=== PATIENT | female | born 1965 | race Caucasian/White ===

== ENCOUNTER → 2017-03-11 | Outpatient (CLI) | payer BC, OTHER ==
[~2017-03-11] MED LIST: ASCO-340 PO; ASPI81TA2 PO; CALC-1152 PO; CHOL100044 PO; DIAZ5TAB4 PO; DOCU-25 PO; ESCI20TA PO; ESTR1PAT27 TD; GABA600T2 PO; MAGN100T PO; METH500T PO; NARA2.5T2 PO; OXYC10TA49 PO; TEMA30CA PO
== END | disposition home or self-care (01) ==
LOC: RAD 10:12
PROVIDERS: ATTEND Surgery
DX: M25.541 Pain in joints of right hand (principal)
CPT/HCPCS: 73130-TC

== ENCOUNTER 2017-03-17 12:16 | Outpatient (CLI) | payer BC, OTHER ==
[2017-03-17 14:15] LABS: INR 0.94 (0.87-1.13)
[2017-03-17 14:33] LABS: BASOPHILS % (AUTO) 0.8 % (0.0-2.0); EOSINOPHILS # (AUTO) 0.1 /CMM (0.0-0.7); EOSINOPHILS % (AUTO) 1.7 % (0.0-6.0); HEMATOCRIT 43 % (33-45); HEMOGLOBIN 14.3 g/dL (11.5-14.8); LYMPHOCYTES # (AUTO) 2.1 /CMM (0.8-4.8); LYMPHOCYTES % (AUTO) 36.3 % (20.0-44.0); MEAN CORPUSCULAR HEMOGLOBIN 29 PG (26.0-33.0); MEAN CORPUSCULAR HGB CONC 33 g/dl (31.0-36.0); MEAN CORPUSCULAR VOLUME 86 fL (82-100); MONOCYTES # (AUTO) 0.3 /CMM (0.1-1.30); MONOCYTES % (AUTO) 4.9 % (2.0-12.0); NEUTROPHILS # (AUTO) 3.3 /CMM (1.8-8.9); NEUTROPHILS % (AUTO) 56.3 % (43.0-81.0); PLATELET COUNT (AUTO) 335 /CMM (150-450); RDW COEFFICIENT OF VARIATION 13.1 (11.5-15.0); RED BLOOD CELL COUNT(AUTO) 5.03 MIL/uL (4.0-5.2); WHITE BLOOD COUNT (AUTO) 5.9 K/uL (4.3-11.0)
[2017-03-18] MEDS ORDERED: FENTANYL PF 100MCG/2ML AMPUL ONE (07:39)
== END 2017-03-17 23:59 | disposition home or self-care (01) ==
LOC: LAB 12:16
PROVIDERS: ATTEND Physical Medicine & Rehabilitation Pain Medicine
DX: R06.00 Dyspnea, unspecified (principal); M41.84 Other forms of scoliosis, thoracic region; M47.814 Spondylosis without myelopathy or radiculopathy, thoracic region
CPT/HCPCS: 36415; 71020-TC; 85025-TC; 85610-TC; 85730-TC; J3010

== ENCOUNTER 2017-03-18 06:26 | Day surgery (SDC) | payer BC, OTHER ==
[~2017-03-18] VITALS: Ht 162.6 cm; Wt 77.1 kg
[2017-03-18] MEDS ORDERED: TRIAMCINOLONE ACETONIDE SUSP 40 MG/ML 1 ML ONE ×2 (07:30→08:15)
[2017-03-18] MEDS ORDERED: IOHEXOL 50 ML IV ONE (07:30)
[2017-03-18] MEDS ORDERED: BUPIVACAINE 0.5 % PF 150 MG/30 ML VIAL ONE (08:15)
[2017-03-18] MEDS ORDERED: BUPIVACAINE 0.25% 75 MG/30 ML VIAL ONE (08:15)
[2017-03-18] MEDS ORDERED: FENTANYL PF 100MCG/2ML AMPUL ONE ×2 (08:46→09:12)
[2017-03-18] MEDS ORDERED: IV LR 1000 ML 1,000 ML ONE (08:59)
[2017-03-18] MEDS ORDERED: NEEDLELESS EST SET LARGE BORE 1 EA INFUS.SET MC ONE (09:00)
[2017-03-18] MEDS ORDERED: IV SET PRIMARY 1 EA INFUS.SET MC ONE (09:00)
[2017-03-18] MEDS ORDERED: HYDROMORPHONE 1 MG/1 ML DISP.SYRIN ONE ×3 (09:36→10:24)
== END 2017-03-18 11:20 | disposition home or self-care (01) ==
LOC: DS 06:26
PROVIDERS: ATTEND Physical Medicine & Rehabilitation Pain Medicine
DX: M51.16 Intervertebral disc disorders with radiculopathy, lumbar region (principal); F41.9 Anxiety disorder, unspecified
CPT/HCPCS: 64483; 72020; A6402; J1170 ×3; J2405; J2704; J3010 ×2; J3490 ×2; J7120; Q9967

== ENCOUNTER 2017-04-07 07:59 | Outpatient (CLI) | payer BC, OTHER ==
[2017-04-07 09:01] LABS: BASOPHILS % (AUTO) 0.8 % (0.0-2.0); EOSINOPHILS # (AUTO) 0.1 /CMM (0.0-0.7); EOSINOPHILS % (AUTO) 1.3 % (0.0-6.0); HEMATOCRIT 41 % (33-45); LYMPHOCYTES # (AUTO) 2.1 /CMM (0.8-4.8); LYMPHOCYTES % (AUTO) 34.4 % (20.0-44.0); MEAN CORPUSCULAR HEMOGLOBIN 30 PG (26.0-33.0); MEAN CORPUSCULAR HGB CONC 34 g/dl (31.0-36.0); MEAN CORPUSCULAR VOLUME 88 fL (82-100); MONOCYTES # (AUTO) 0.4 /CMM (0.1-1.30); MONOCYTES % (AUTO) 6.1 % (2.0-12.0); NEUTROPHILS # (AUTO) 3.4 /CMM (1.8-8.9); NEUTROPHILS % (AUTO) 57.4 % (43.0-81.0); PLATELET COUNT (AUTO) 307 /CMM (150-450); RED BLOOD CELL COUNT(AUTO) 4.71 MIL/uL (4.0-5.2)
[2017-04-07 09:12] LABS: APPEARANCE,URINE CLEAR (CLEAR); BILIRUBIN,URINE NEGATIVE (NEGATIVE); BLOOD, URINE NEGATIVE Ery/uL (NEGATIVE); COLOR,URINE YELLOW (YELLOW); KETONES,URINE NEGATIVE (NEGATIVE); LEUKOCYTE ESTERASE ,URINE NEGATIVE (NEGATIVE); NITRITE, URINE NEGATIVE (NEGATIVE); PH,URINE 6.5 (5.0-8.0); PROTEIN,URINE NEGATIVE (NEGATIVE); UGLUCOSE NEGATIVE (NEGATIVE); UROBILINOGEN,URINE 0.2 EU/dL (0.2)
[2017-04-07 09:13] LABS: ALBUMIN 3.5 g/dL (3.4-5.0); BILIRUBIN,TOTAL 0.6 mg/dL (0.2-1.0); CALCIUM, SERUM 8.5 mg/dL (8.5-10.1); CREATININE 0.7 mg/dL (0.6-1.3); POTASSIUM 5.1 mmol/L (3.5-5.1); TOTAL PROTEIN, SERUM 6.7 g/dL (6.4-8.2)
[2017-04-07 09:26] LABS: THYROID STIMULATING HORMONE 0.721 uIU/mL (0.358-3.74); URIC ACID 4.6 mg/dL (2.6-7.2)
[2017-04-07 09:39] LABS: C-REACTIVE PROTEIN 1.5 mg/dL (0.0-0.9)
[2017-04-08 18:09] LABS: *ANA ANTI-CENTROMERE B AB <0.2 AI (0.0-0.9); *ANA ANTI-DNA(DS) AB, QN <1 IU/mL (0-9); *ANA ANTI-JO-1 <0.2 AI (0.0-0.9); *ANA ANTICHROMATIN ANTIBODY <0.2 AI (0.0-0.9); *ANA RNP ANTIBODIES <0.2 AI (0.0-0.9); *ANA SJOGREN'S ANTI-SS-A <0.2 AI (0.0-0.9); *ANA SJOGREN'S ANTI-SS-B <0.2 AI (0.0-0.9); *ANAANTI-SCLERODERMA-70 AB <0.2 AI (0.0-0.9); *ANASMITH AB <0.2 AI (0.0-0.9)
[2017-04-09 19:12] LABS: CCP IgG/IgA AB 5 units (0-19)
== END 2017-04-07 23:59 | disposition home or self-care (01) ==
LOC: LAB 07:59
PROVIDERS: ATTEND Legal Medicine
DX: E03.9 Hypothyroidism, unspecified (principal); I25.10 Atherosclerotic heart disease of native coronary artery without angina pectoris; I12.9 Hypertensive chronic kidney disease with stage 1 through stage 4 chronic kidney disease, or unspecified chronic kidney disease; D63.1 Anemia in chronic kidney disease; N18.9 Chronic kidney disease, unspecified; E55.9 Vitamin D deficiency, unspecified; E78.5 Hyperlipidemia, unspecified
CPT/HCPCS: 36415; 80053-TC; 80061-TC; 81000-TC; 82306; 82728-TC; 82746; 83540-TC; 84439-TC; 84443-TC; 84550-TC; 85025-TC; 85652-TC; 86140-TC; 86200; 86225; 86235; 86431-TC

== ENCOUNTER 2017-04-16 06:22 | Day surgery (SDC) | payer BC, OTHER ==
[2017-04-16] MEDS ORDERED: FENTANYL PF 100MCG/2ML AMPUL ONE ×2 (07:34→09:21)
[2017-04-16] MEDS ORDERED: TRIAMCINOLONE ACETONIDE SUSP 40 MG/ML 1 ML ONE ×3 (07:40→08:53)
[2017-04-16] MEDS ORDERED: BUPIVACAINE 0.25% 75 MG/30 ML VIAL ONE (07:40)
[2017-04-16] MEDS ORDERED: IOHEXOL 50 ML IV ONE (07:40)
[2017-04-16] MEDS ORDERED: KETOROLAC TROMETHAMINE INJ 30 MG/ML VIAL ONE (09:04)
[2017-04-16] MEDS ORDERED: HYDROMORPHONE INJ 2 MG/ML DISP.SYRIN ONE (09:10)
[2017-04-16] MEDS ORDERED: IV NS 0.9% 250 ML IV ONE (09:13)
[2017-04-16] MEDS ORDERED: IV LR 1000 ML 1,000 ML ONE (09:38)
[2017-04-16] MEDS ORDERED: IV SET PRIMARY 1 EA INFUS.SET MC ONE (09:38)
== END 2017-04-16 12:26 | disposition home or self-care (01) ==
LOC: DS 06:22
PROVIDERS: ATTEND Physical Medicine & Rehabilitation Pain Medicine
DX: M54.16 Radiculopathy, lumbar region (principal); E66.3 Overweight; G43.809 Other migraine, not intractable, without status migrainosus; Z90.710 Acquired absence of both cervix and uterus; Z98.84 Bariatric surgery status; Z90.49 Acquired absence of other specified parts of digestive tract
CPT/HCPCS: 72020-TC; A6402; J1170; J1885; J2405; J2704; J3010; J3490; J7050; J7120; Q9967

== ENCOUNTER 2017-05-14 09:02 | Outpatient (CLI) | payer BC, OTHER ==
[2017-05-17 18:08] LABS: QFT TB AG MINUS NIL VALUE 0.03 IU/mL (.); QFT TB GOLD Negative (Negative)
== END 2017-05-14 23:59 | disposition home or self-care (01) ==
LOC: LAB 09:02
PROVIDERS: ATTEND Legal Medicine
DX: Z20.1 Contact with and (suspected) exposure to tuberculosis (principal)
CPT/HCPCS: 36415

== ENCOUNTER 2017-05-20 10:51 | Emergency (ER) | payer BC, OTHER ==
[~2017-05-20] VITALS: Ht 162.6 cm; Wt 76.7 kg
--- NOTE | 2017-05-20 11:00 | NUR ---
PT CAME IN FOR HYPERTENSION AND TACHYCARDIA SINCE THIS AM. PER PT SHE EXPERIENCED THIS BEFORE BUT WAS NEVER ON MEDS. SEEN BY MD FOR EVAL. VSS. SAFETY AND COMFORT MEASURES PROVIDED. WILL MONITOR.
[2017-05-20] MEDS ORDERED: IV NS 0.9% 1,000 ML BAG IV ONE (11:30)
--- NOTE | 2017-05-20 11:30 | NUR ---
URINE SAMPLE OBTAINED, SENT.
[2017-05-20 11:42] LABS: BASOPHILS # (AUTO) 0.1 /CMM (0.0-0.2); EOSINOPHILS # (AUTO) 0.1 /CMM (0.0-0.7); EOSINOPHILS % (AUTO) 1.1 % (0.0-6.0); HEMATOCRIT 46 % (33-45); HEMOGLOBIN 14.4 g/dL (11.5-14.8); LYMPHOCYTES # (AUTO) 1.6 /CMM (0.8-4.8); LYMPHOCYTES % (AUTO) 20.9 % (20.0-44.0); MEAN CORPUSCULAR HEMOGLOBIN 29 PG (26.0-33.0); MEAN CORPUSCULAR HGB CONC 32 g/dl (31.0-36.0); MEAN CORPUSCULAR VOLUME 91 fL (82-100); MONOCYTES # (AUTO) 0.4 /CMM (0.1-1.30); NEUTROPHILS # (AUTO) 5.2 /CMM (1.8-8.9); PLATELET COUNT (AUTO) 378 /CMM (150-450); RED BLOOD CELL COUNT(AUTO) 5.04 MIL/uL (4.0-5.2); WHITE BLOOD COUNT (AUTO) 7.4 K/uL (4.3-11.0)
--- NOTE | 2017-05-20 11:42 | NUR ---
IV ACCESS STARTED. BLOOD DRAWN FOR LABS. PT MEDICATED ORDERED.
[2017-05-20 11:43] LABS: APPEARANCE,URINE Clear (CLEAR); BILIRUBIN,URINE Negative (NEGATIVE); BLOOD, URINE Negative Ery/uL (NEGATIVE); COLOR,URINE Yellow (YELLOW); KETONES,URINE Negative (NEGATIVE); LEUKOCYTE ESTERASE ,URINE Negative (NEGATIVE); NITRITE, URINE Negative (NEGATIVE); PROTEIN,URINE Negative (NEGATIVE); UGLUCOSE Negative (NEGATIVE); UROBILINOGEN,URINE 0.2 EU/dL (0.2)
[2017-05-20 11:49] LABS: CALCIUM, SERUM 8.3 mg/dL (8.5-10.1); CARBON DIOXIDE 31 mmol/L (21-32); CHLORIDE 113 mmol/L (98-107); CREATININE 0.9 mg/dL (0.6-1.3); GLUCOSE 73 mg/dL (74-106); SODIUM SERUM 149 mmol/L (136-145); UREA NITROGEN, BLOOD 17 mg/dL (7-18)
[2017-05-20 11:58] LABS: TROPONIN I < 0.017 ng/mL (0.00-0.056)
--- NOTE | 2017-05-20 12:30 | NUR ---
SECOND EKG ORDER CANCELLED.
--- NOTE | 2017-05-20 12:35 | NUR ---
IV removed. Catheter intact and site benign. Pressure and 4x4 applied to site. No bleeding noted.
--- NOTE | 2017-05-20 12:41 | NUR ---
Patient discharged to home in stable condition. Written and verbal after care instructions given. Patient verbalizes understanding of instruction. All questions answered.
[2017-05-20 12:43] VITALS: BP 124/71
== END 2017-05-20 12:58 | disposition home or self-care (01) ==
LOC: ER 10:53
DX: R00.0 Tachycardia, unspecified (principal); R00.2 Palpitations; G43.909 Migraine, unspecified, not intractable, without status migrainosus; M54.30 Sciatica, unspecified side; Z79.82 Long term (current) use of aspirin; Z98.84 Bariatric surgery status; Z88.8 Allergy status to other drugs, medicaments and biological substances; Z90.710 Acquired absence of both cervix and uterus; Z90.49 Acquired absence of other specified parts of digestive tract
CPT/HCPCS: 36415; 71010-TC; 80048-TC; 81000-TC; 84484-TC; 85025-TC; A4606; J7030; Z7610

== ENCOUNTER 2017-07-08 09:00 | Outpatient (CLI) | payer BC, OTHER ==
[2017-07-08 09:23] LABS: BASOPHILS % (AUTO) 0.6 % (0.0-2.0); EOSINOPHILS # (AUTO) 0.1 /CMM (0.0-0.7); EOSINOPHILS % (AUTO) 1.4 % (0.0-6.0); HEMATOCRIT 42 % (33-45); LYMPHOCYTES # (AUTO) 2.2 /CMM (0.8-4.8); LYMPHOCYTES % (AUTO) 33.5 % (20.0-44.0); MEAN CORPUSCULAR HEMOGLOBIN 29 PG (26.0-33.0); MEAN CORPUSCULAR HGB CONC 33 g/dl (31.0-36.0); MEAN CORPUSCULAR VOLUME 88 fL (82-100); MONOCYTES # (AUTO) 0.4 /CMM (0.1-1.30); MONOCYTES % (AUTO) 6.9 % (2.0-12.0); NEUTROPHILS # (AUTO) 3.8 /CMM (1.8-8.9); NEUTROPHILS % (AUTO) 57.6 % (43.0-81.0); PLATELET COUNT (AUTO) 303 /CMM (150-450); RDW COEFFICIENT OF VARIATION 13.3 (11.5-15.0); WHITE BLOOD COUNT (AUTO) 6.6 K/uL (4.3-11.0)
[2017-07-08 09:39] LABS: ALBUMIN 3.7 g/dL (3.4-5.0); BILIRUBIN,TOTAL 0.4 mg/dL (0.2-1.0); CALCIUM, SERUM 8.5 mg/dL (8.5-10.1); CREATININE 0.7 mg/dL (0.6-1.3); POTASSIUM 4.6 mmol/L (3.5-5.1); TOTAL PROTEIN, SERUM 6.7 g/dL (6.4-8.2)
[2017-07-08 09:55] LABS: INR 0.94 (0.87-1.13)
== END 2017-07-08 23:59 | disposition home or self-care (01) ==
LOC: LAB 09:00
PROVIDERS: ATTEND Physical Medicine & Rehabilitation Pain Medicine
DX: Z01.818 Encounter for other preprocedural examination (principal); R79.1 Abnormal coagulation profile
CPT/HCPCS: 36415; 80053-TC; 85025-TC; 85610-TC; 85730-TC

== ENCOUNTER 2017-07-09 06:22 | Day surgery (SDC) | payer BC, OTHER ==
[2017-07-09] MEDS ORDERED: FENTANYL PF 100MCG/2ML AMPUL ONE ×2 (08:12→09:18)
[2017-07-09] MEDS ORDERED: IOHEXOL 50 ML IV ONE (08:25)
[2017-07-09] MEDS ORDERED: TRIAMCINOLONE ACETONIDE SUSP 40 MG/ML 1 ML ONE ×2 (08:25→08:26)
[2017-07-09] MEDS ORDERED: HYDROMORPHONE 2 MG/1 ML SDV ONE ×2 (08:54→09:12)
[2017-07-09] MEDS ORDERED: HYDROMORPHONE 1 MG/1 ML DISP.SYRIN ONE (09:31)
== END 2017-07-09 10:55 | disposition home or self-care (01) ==
LOC: DS 06:22
PROVIDERS: ATTEND Physical Medicine & Rehabilitation Pain Medicine
DX: M51.16 Intervertebral disc disorders with radiculopathy, lumbar region (principal); Z98.84 Bariatric surgery status; Z90.710 Acquired absence of both cervix and uterus; F32.9 Major depressive disorder, single episode, unspecified
CPT/HCPCS: 64483; 72020; A6402; J1170 ×3; J3010 ×2; Q9967; J2704; J3490

== ENCOUNTER 2017-08-20 12:27 | Outpatient (CLI) | payer BC, OTHER ==
--- NOTE | 2017-08-20 13:37 | NUR ---
ADONAY ARCHULETA , HOW TO DO PCS NOTE
== END 2017-08-20 23:59 | disposition home or self-care (01) ==
LOC: MRI 12:27
PROVIDERS: ATTEND Specialist
DX: M94.262 Chondromalacia, left knee (principal); M89.9 Disorder of bone, unspecified; M25.462 Effusion, left knee; R60.0 Localized edema
CPT/HCPCS: 73721-TC

== ENCOUNTER 2017-09-06 13:42 | Outpatient (CLI) | payer BC | END 2017-09-06 23:59 | disposition home or self-care (01) | LOC: RAD 13:42 | PROVIDERS: ATTEND Legal Medicine | DX: M25.441 Effusion, right hand (principal) | CPT/HCPCS: 73130-TC ==

== ENCOUNTER 2017-09-10 06:08 | Outpatient (CLI) | payer BC ==
[2017-09-10 08:00] LABS: BASOPHILS % (AUTO) 0.7 % (0.0-2.0); EOSINOPHILS # (AUTO) 0.1 /CMM (0.0-0.7); EOSINOPHILS % (AUTO) 1.5 % (0.0-6.0); HEMATOCRIT 44 % (33-45); HEMOGLOBIN 14.7 g/dL (11.5-14.8); LYMPHOCYTES # (AUTO) 2.2 /CMM (0.8-4.8); LYMPHOCYTES % (AUTO) 36.2 % (20.0-44.0); MEAN CORPUSCULAR HEMOGLOBIN 29 PG (26.0-33.0); MEAN CORPUSCULAR HGB CONC 33 g/dl (31.0-36.0); MEAN CORPUSCULAR VOLUME 87 fL (82-100); MONOCYTES # (AUTO) 0.4 /CMM (0.1-1.30); MONOCYTES % (AUTO) 6.3 % (2.0-12.0); NEUTROPHILS # (AUTO) 3.3 /CMM (1.8-8.9); NEUTROPHILS % (AUTO) 55.3 % (43.0-81.0); PLATELET COUNT (AUTO) 327 /CMM (150-450); RDW COEFFICIENT OF VARIATION 13.4 (11.5-15.0); RED BLOOD CELL COUNT(AUTO) 5.08 MIL/uL (4.0-5.2)
[2017-09-10 08:15] LABS: C-REACTIVE PROTEIN 0.3 mg/dL (0.0-0.9); URIC ACID 4.3 mg/dL (2.6-7.2)
== END 2017-09-10 23:59 | disposition home or self-care (01) ==
LOC: LAB 06:08
PROVIDERS: ATTEND Legal Medicine
DX: M19.90 Unspecified osteoarthritis, unspecified site (principal)
CPT/HCPCS: 36415; 84550-TC; 85025-TC; 85652-TC; 86140-TC

== ENCOUNTER 2017-10-20 11:03 | Outpatient (CLI) | payer BC ==
[~2017-10-20 11:03] MED LIST changes: +ASPI-1169 PO; -ASPI81TA2 PO; -CALC-1152 PO; +CALC-1198 PO; +DOCU-141 PO; -DOCU-25 PO
[2017-10-20 12:08] LABS: BASOPHILS % (AUTO) 0.4 % (0.0-2.0); EOSINOPHILS # (AUTO) 0.1 /CMM (0.0-0.7); EOSINOPHILS % (AUTO) 0.7 % (0.0-6.0); HEMATOCRIT 46 % (33-45); HEMOGLOBIN 14.7 g/dL (11.5-14.8); LYMPHOCYTES # (AUTO) 2.3 /CMM (0.8-4.8); LYMPHOCYTES % (AUTO) 29.3 % (20.0-44.0); MEAN CORPUSCULAR HEMOGLOBIN 28 PG (26.0-33.0); MEAN CORPUSCULAR HGB CONC 32 g/dl (31.0-36.0); MEAN CORPUSCULAR VOLUME 89 fL (82-100); MONOCYTES # (AUTO) 0.4 /CMM (0.1-1.30); MONOCYTES % (AUTO) 5.5 % (2.0-12.0); NEUTROPHILS % (AUTO) 64.1 % (43.0-81.0); PLATELET COUNT (AUTO) 307 /CMM (150-450); RDW COEFFICIENT OF VARIATION 13.4 (11.5-15.0); RED BLOOD CELL COUNT(AUTO) 5.16 MIL/uL (4.0-5.2); WHITE BLOOD COUNT (AUTO) 7.8 K/uL (4.3-11.0)
[2017-10-20 12:43] LABS: CREATININE 0.7 mg/dL (0.6-1.3); POTASSIUM 4.6 mmol/L (3.5-5.1)
== END 2017-10-20 23:59 | disposition home or self-care (01) ==
LOC: LAB 11:03
PROVIDERS: ATTEND Physical Medicine & Rehabilitation Pain Medicine
DX: Z01.818 Encounter for other preprocedural examination (principal)
CPT/HCPCS: 36415; 80048-TC; 85025-TC

== ENCOUNTER → 2017-10-22 | Day surgery (SDC) | payer BC ==
[~2017-10-22] MED LIST changes: +ANESTHESIA TRAY IN PYXIS 1 EA TRAY MC ONE; +FENTANYL PF 100MCG/2ML AMPUL ONE; +IOHEXOL 50 ML IV ONE; +TRIAMCINOLONE ACETONIDE SUSP 40 MG/ML 1 ML ONE
== END | disposition home or self-care (01) ==
LOC: DS 06:25
PROVIDERS: ATTEND Physical Medicine & Rehabilitation Pain Medicine
PROC: 3E0S3BZ Introduction of Anesthetic Agent into Epidural Space, Percutaneous Approach (ICD-10-PCS; principal; 2017-10-22 08:50)
DX: M51.16 Intervertebral disc disorders with radiculopathy, lumbar region (principal); M51.36 Other intervertebral disc degeneration, lumbar region; Z98.84 Bariatric surgery status; Z90.710 Acquired absence of both cervix and uterus; Z98.890 Other specified postprocedural states; E66.3 Overweight; G89.29 Other chronic pain
CPT/HCPCS: 62323; 72020; J2704; J3010 ×2; J3490; Q9967

== ENCOUNTER → 2017-12-16 | Outpatient (CLI) | payer BC ==
[~2017-12-16] MED LIST changes: -ANESTHESIA TRAY IN PYXIS 1 EA TRAY MC ONE; -FENTANYL PF 100MCG/2ML AMPUL ONE; -IOHEXOL 50 ML IV ONE; -TRIAMCINOLONE ACETONIDE SUSP 40 MG/ML 1 ML ONE
[2017-12-16 10:15] LABS: BASOPHILS % (AUTO) 0.8 % (0.0-2.0); EOSINOPHILS # (AUTO) 0.1 /CMM (0.0-0.7); EOSINOPHILS % (AUTO) 1.6 % (0.0-6.0); HEMATOCRIT 42 % (33-45); HEMOGLOBIN 14.3 g/dL (11.5-14.8); LYMPHOCYTES # (AUTO) 2.1 /CMM (0.8-4.8); LYMPHOCYTES % (AUTO) 43.2 % (20.0-44.0); MEAN CORPUSCULAR HEMOGLOBIN 30 PG (26.0-33.0); MEAN CORPUSCULAR HGB CONC 34 g/dl (31.0-36.0); MEAN CORPUSCULAR VOLUME 87 fL (82-100); MONOCYTES # (AUTO) 0.3 /CMM (0.1-1.30); NEUTROPHILS # (AUTO) 2.4 /CMM (1.8-8.9); NEUTROPHILS % (AUTO) 47.4 % (43.0-81.0); PLATELET COUNT (AUTO) 303 /CMM (150-450); RDW COEFFICIENT OF VARIATION 13.1 (11.5-15.0); RED BLOOD CELL COUNT(AUTO) 4.84 MIL/uL (4.0-5.2)
[2017-12-16 10:20] LABS: APPEARANCE,URINE CLEAR (CLEAR); BILIRUBIN,URINE NEGATIVE (NEGATIVE); BLOOD, URINE NEGATIVE Ery/uL (NEGATIVE); COLOR,URINE YELLOW (YELLOW); KETONES,URINE NEGATIVE (NEGATIVE); LEUKOCYTE ESTERASE ,URINE NEGATIVE (NEGATIVE); NITRITE, URINE NEGATIVE (NEGATIVE); PROTEIN,URINE NEGATIVE (NEGATIVE); UGLUCOSE NEGATIVE (NEGATIVE); UROBILINOGEN,URINE 0.2 EU/dL (0.2)
[2017-12-16 11:34] LABS: CREATINE KINASE, TOTAL 53 U/L (26-192); FERRITIN 21 ng/mL (8-388); IRON, SERUM 122 ug/dl (50-175); URIC ACID 4.1 mg/dL (2.6-7.2)
[2017-12-16 11:35] LABS: TOTAL IRON BINDING CAPACITY 364 ug/dl (250-450)
[2017-12-16 12:30] LABS: CHLORIDE 108 mmol/L (98-107); POTASSIUM 4.4 mmol/L (3.5-5.1); SODIUM SERUM 146 mmol/L (136-145)
[2017-12-16 12:31] LABS: BILIRUBIN,TOTAL 0.4 mg/dL (0.2-1.0); CALCIUM, SERUM 9.3 mg/dL (8.5-10.1); CARBON DIOXIDE 28 mmol/L (21-32); CREATININE 0.6 mg/dL (0.6-1.3); GLUCOSE 82 mg/dL (74-106); UREA NITROGEN, BLOOD 11 mg/dL (7-18)
[2017-12-16 12:32] LABS: ALANINE AMINOTRANSFERASE 27 U/L (12-78); ALBUMIN 3.7 g/dL (3.4-5.0); ALKALINE PHOSPHATASE 68 U/L (46-116); ASPARTATE AMINOTRANSFERASE 21 U/L (15-37); TOTAL PROTEIN, SERUM 6.6 g/dL (6.4-8.2)
[2017-12-16 13:25] LABS: CHOLESTEROL 196 mg/dL (<200); HDL CHOLESTEROL 60 mg/dL (40-60); LDL 123 mg/dL (0-99); THYROID STIMULATING HORMONE 2.299 uIU/mL (0.358-3.74); TRIGLYCERIDES 103 mg/dL (30-150)
[2017-12-16 20:29] LABS: C-REACTIVE PROTEIN < 0.2 mg/dL (0.0-0.9)
[2017-12-17 18:11] LABS: *ANA ANTI-CENTROMERE B AB <0.2 AI (0.0-0.9); *ANA ANTI-DNA(DS) AB, QN <1 IU/mL (0-9); *ANA ANTI-JO-1 <0.2 AI (0.0-0.9); *ANA ANTICHROMATIN ANTIBODY <0.2 AI (0.0-0.9); *ANA RNP ANTIBODIES <0.2 AI (0.0-0.9); *ANA SJOGREN'S ANTI-SS-A <0.2 AI (0.0-0.9); *ANA SJOGREN'S ANTI-SS-B <0.2 AI (0.0-0.9); *ANAANTI-SCLERODERMA-70 AB <0.2 AI (0.0-0.9); *ANASMITH AB <0.2 AI (0.0-0.9)
== END | disposition home or self-care (01) ==
LOC: LAB 06:40
PROVIDERS: ATTEND Legal Medicine
DX: E78.00 Pure hypercholesterolemia, unspecified (principal); E03.9 Hypothyroidism, unspecified; D64.9 Anemia, unspecified; M25.50 Pain in unspecified joint
CPT/HCPCS: 36415; 80053-TC; 80061-TC; 81000-TC; 82085; 82306; 82550-TC; 82728-TC; 82746; 83540-TC; 84439-TC; 84443-TC; 84550-TC; 85025-TC; 85652-TC; 86140-TC; 86200; 86225; 86235; 86431-TC

== ENCOUNTER 2017-12-20 08:45 | Outpatient (CLI) | payer OTHER ==
[2017-12-20] MEDS ORDERED: LIDOCAINE HCL/PF 1% 30 ML SDV ONE (14:51)
[2017-12-20] MEDS ORDERED: IOHEXOL 240MG/ML 50 ML IV ONE (15:36)
== END 2017-12-20 23:59 | disposition home or self-care (01) ==
LOC: MRI 08:45
DX: S43.401D Unspecified sprain of right shoulder joint, subsequent encounter (principal); M19.011 Primary osteoarthritis, right shoulder; X58.XXXD Exposure to other specified factors, subsequent encounter
CPT/HCPCS: 73115; 73221; J3490; Q9966

== ENCOUNTER 2018-02-01 17:44 | Outpatient (CLI) | payer OTHER ==
[2018-02-01 18:09] LABS: APPEARANCE,URINE SL CLOUDY (CLEAR); BILIRUBIN,URINE NEGATIVE (NEGATIVE); BLOOD, URINE NEGATIVE Ery/uL (NEGATIVE); COLOR,URINE YELLOW (YELLOW); KETONES,URINE 1+ (NEGATIVE); LEUKOCYTE ESTERASE ,URINE NEGATIVE (NEGATIVE); NITRITE, URINE NEGATIVE (NEGATIVE); PH,URINE 5.5 (5.0-8.0); PROTEIN,URINE NEGATIVE (NEGATIVE); UGLUCOSE NEGATIVE (NEGATIVE); UROBILINOGEN,URINE 0.2 EU/dL (0.2)
[2018-02-01 18:18] LABS: CALCIUM, SERUM 9.1 mg/dL (8.5-10.1); CREATININE 0.6 mg/dL (0.6-1.3)
[2018-02-01 18:47] LABS: BASOPHILS # (AUTO) 0.1 /CMM (0.0-0.2); BASOPHILS % (AUTO) 0.8 % (0.0-2.0); EOSINOPHILS % (AUTO) 0.7 % (0.0-6.0); HEMATOCRIT 42 % (33-45); HEMOGLOBIN 13.6 g/dL (11.5-14.8); LYMPHOCYTES # (AUTO) 2.1 /CMM (0.8-4.8); LYMPHOCYTES % (AUTO) 30.1 % (20.0-44.0); MEAN CORPUSCULAR HGB CONC 32 g/dl (31.0-36.0); MEAN CORPUSCULAR VOLUME 92 fL (82-100); MONOCYTES # (AUTO) 0.4 /CMM (0.1-1.30); MONOCYTES % (AUTO) 6.2 % (2.0-12.0); NEUTROPHILS # (AUTO) 4.3 /CMM (1.8-8.9); NEUTROPHILS % (AUTO) 62.2 % (43.0-81.0); PLATELET COUNT (AUTO) 361 /CMM (150-450); RDW COEFFICIENT OF VARIATION 13.7 (11.5-15.0); WHITE BLOOD COUNT (AUTO) 6.9 K/uL (4.3-11.0)
[2018-02-01 21:08] LABS: INR 0.95 (0.87-1.13)
== END 2018-02-01 23:59 | disposition home or self-care (01) ==
LOC: LAB 17:44
PROVIDERS: ATTEND Legal Medicine
DX: Z01.818 Encounter for other preprocedural examination (principal)
CPT/HCPCS: 36415; 80048-TC; 81000-TC; 85025-TC; 85730-TC

== ENCOUNTER 2018-02-09 05:02 | Inpatient (IN) | payer OTHER ==
[~2018-02-09] VITALS: Ht 162.6 cm; Wt 81.6 kg
[2018-02-09 05:00] VITALS: BP 107/44
--- NOTE | 2018-02-09 05:20 | NUR ---
MS COREMAKER BENCH NOTES ADMITTED 52YO FEMALE PT FOR RT SHOULDER ARTHROSCOPY, ROTATOR CUFF REPAIR. PT ALERT, AWAKE, VERBALLY RESPONSIVE ON ROOM AIR, RESPIRATIONS EVEN, UNLABORED, NO APPARENT DISTRESS NOTED. COMPLAINED OF SLIGHT DISCOMFORT IN RT SHOULDER. BODY ASSESSMENT DONE. INFORMED CONSENT SIGNED, CHECKLIST DONE. PSYCHIATRIC AIDES TEACHER AT THE BED .SIDE CALL LIGHT WITHIN REACH. WILL CONTINUE TO MONITOR ACCORDINGLY.
[2018-02-09 06:00] VITALS: BP 107/44
--- NOTE | 2018-02-09 06:10 | NUR ---
MS RN NOTE PT PICKED UP BY OR IN STABLE CONDITION, VERBALLY RESPONSIVE, NO APPARENT DISTRESS NOTED.
[2018-02-09] MEDS ORDERED: LIDOCAINE 1% INJ 50 ML MDV IJ ONE (06:27)
[2018-02-09] MEDS ORDERED: ANESTHESIA TRAY IN PYXIS 1 EA TRAY MC ONE (06:27)
[2018-02-09] MEDS ORDERED: EPINEPHRINE (1:1000) MDV 30 MG/30ML VIAL ONE (06:28)
[2018-02-09] MEDS ORDERED: methylPREDNISolone ACETATE 80 MG/ML VIAL ONE (06:28)
[2018-02-09] MEDS ORDERED: ROCURONIUM BROMIDE 50 MG/5 ML ONE (06:49)
[2018-02-09] MEDS ORDERED: FENTANYL PF 100MCG/2ML AMPUL ONE (06:49)
[2018-02-09] MEDS ORDERED: MIDAZOLAM HCL 2 MG/2ML VIAL ONE (06:49)
--- NOTE | 2018-02-09 07:37 | NUR ---
RN OPENING NOTES PATIENT IN SURGERY.
[2018-02-09] MEDS ORDERED: oxyCODONE/APAP (5/325 MG) 1 UDTAB TABLET PO PRN ×2 (09:00)
[2018-02-09 09:30] VITALS: BP 103/53
[2018-02-09] MEDS ORDERED: ACETAMINOPHEN 325 MG TABLET PO PRN (09:30)
--- NOTE | 2018-02-09 09:30 | NUR ---
RN NOTES PATIENT CAME BACK FROM SURGERY. PATIENT IN STABLE CONDITION. NO ACUTE DISTRESS, NO SOB. DENIED PAIN OR DISCOMFORT AT THE MOMENT. A/O/4. ON 2LPM NC OXYGEN, SPO2 94%. IV SITE INTACT AND PATENT. DVT PUMP IN PLACE. NEW ORDERS NOTED AND CARRIED OUT. KEPT PATIENT SAFE AND COMFORTABLE. BED IN LOW/LOCKED POSITION, CALL LIGHT IN REACH. WILL CONTINUE TO MONITOR ACCORDINGLY.
[2018-02-09] MEDS ORDERED: OXYC15TA2 PO (11:21)
[2018-02-09] MEDS ORDERED: TRAZ-182 PO (11:21)
[2018-02-09] MEDS ORDERED: TURM1CAP2 PO (11:21)
[2018-02-09] MEDS ORDERED: DULO30CA2 PO (11:21)
[2018-02-09] MEDS ORDERED: CYAN500T4 PO (11:21)
[2018-02-09] MEDS ORDERED: PREG75CA PO (11:46)
[2018-02-09] MEDS ORDERED: BUPIVACAINE 0.75% DEXT-PF 2 ML AMPUL IJ ONE (14:23)
[2018-02-09] MEDS ORDERED: BUPIVACAINE MPF 0.75% 30 ML VIAL IJ ONE (14:23)
[2018-02-09] MEDS: CEFAZOLIN 2 GM in IV D5W 100 ML IV SCH ×2 (15:18→23:57)
[2018-02-09 16:00] VITALS: BP 118/78
--- NOTE | 2018-02-09 19:41 | NUR ---
RN CLOSING NOTES PATIENT IN STABLE CONDITION. ALL NEEDS ATTENDED AND PROVIDED. OFFERED PAIN MEDICATIONS 5 TIMES THROUGHOUT THE SHIFT, PER PATIENT "NOT RIGHT NOW, IM OKAY". FAMILY ON BEDSIDE. KEPT PATIENT SAFE AND COMFORTABLE. BED IN LOW/LOCKED POSITION, SIDERAILS UPX2, CALL LIGHT IN REACH. ENDORSED TO NIGHT RN FOR YANETH.
--- NOTE | 2018-02-09 19:49 | NUR ---
RN NOTE RECEIVED PATIENT IN THE CHAIR, FAMILY IS BY BEDSIDE, NO PAIN OR DISCOMFORT, PATIENT STATED THAT SHE WAS TAKEN TRAZADONE HS AT HOME, SPOKE TO DR MARTIN, NEW ORDER GIVEN AND CARRIED OUT, NEW ORDER TO DRAW CBC, BMP GIVEN AND CARRIED OUT
[2018-02-09 20:00] VITALS: BP 121/63
--- NOTE | 2018-02-09 20:08 | NUR ---
RN NOTE RECEIVED AN ORDER FROM DR VERONICA HESS PERCOCET AND NEW ORDER OF NORCO WAS GIVEN AND CARRIED OUT, PER PT SHE WAS TAKEN NORCO BEFORE AND IT WORKS FOR HER
[2018-02-09 20:28] LABS: BASOPHILS # (AUTO) 0.5 /CMM (0.0-0.2); EOSINOPHILS % (AUTO) 0.1 % (0.0-6.0); HEMATOCRIT 41 % (33-45); LYMPHOCYTES # (AUTO) 2.3 /CMM (0.8-4.8); LYMPHOCYTES % (AUTO) 19.4 % (20.0-44.0); MEAN CORPUSCULAR HGB CONC 34 g/dl (31.0-36.0); MEAN CORPUSCULAR VOLUME 87 fL (82-100); MONOCYTES # (AUTO) 0.7 /CMM (0.1-1.30); MONOCYTES % (AUTO) 5.5 % (2.0-12.0); NEUTROPHILS # (AUTO) 8.4 /CMM (1.8-8.9); PLATELET COUNT (AUTO) 304 /CMM (150-450); RDW COEFFICIENT OF VARIATION 12.5 (11.5-15.0); RED BLOOD CELL COUNT(AUTO) 4.76 MIL/uL (4.0-5.2); WHITE BLOOD COUNT (AUTO) 11.9 K/uL (4.3-11.0)
[2018-02-09] MEDS ORDERED: HYDROCODONE/APAP 10/325MG 1 EA TABLET PO PRN (20:30)
[2018-02-09 21:03] LABS: CALCIUM, SERUM 8.9 mg/dL (8.5-10.1); CREATININE 0.6 mg/dL (0.6-1.3); POTASSIUM 4.1 mmol/L (3.5-5.1)
--- NOTE | 2018-02-09 21:49 | NUR ---
ALICJA SAENZCO 10/325 MG IS NOT EFFECTIVE, RECEIVED AN ORDER FOR DILAUDED, ORDER CARRIED OUT Addendum: 02/09/18 at 2200 by GUSTAVO DANIELSON RN RECEIVED AN ORDER FROM DR MARTIN
[2018-02-09] MEDS ORDERED: TRAZODONE 50 MG TABLET PO SCH (22:00)
[2018-02-09] MEDS ORDERED: HYDROMORPHONE 1 MG/1 ML DISP.SYRIN IV PRN (22:00)
[2018-02-09] MEDS: HYDROMORPHONE INJ 0.5 MG/0.5 ML SYRINGE ONE ×2 (22:16→22:34)
[2018-02-09] MEDS: HYDROMORPHONE 1 MG/1 ML DISP.SYRIN IV PRN (22:23)
[2018-02-10] MEDS ORDERED: HYDROMORPHONE INJ 2 MG/ML DISP.SYRIN ONE (01:51)
[2018-02-10 04:00] VITALS: BP_SYST 103; BP_SYST 118; BP_DIAS 52; BP_DIAS 78
--- NOTE | 2018-02-10 06:15 | NUR ---
RN NOTE PATIENT RESTED WELL AT NIGHT, DX S/P RIGHT SHOULDER ARTHOSCOPY SYNOVECTOMY AND ROTATOR CUFF REPAIR, AWAKE, ALERT/ORIENTED X4, STABLE, PAIN IS WELL CONTROLLED WITH PAIN MEDICATION, NO RESPIRATORY DISTRESS NOTED, LEFT WRIST 18 GAUGE IS PATENT, NO S/S OF INFECTION/INFILTRATION NOTED, ALL SAFETY MEASURES TAKEN, INSTRUCTED PATIENT TO USE CALL LIGHT WHEN NEED TO USE A BATHROOM, ALL BELONGINGS WITHIN REACH, BED IN THE LOWEST POSITION, CALL LIGHT WITHIN REACH, BED ALARM ACTIVATED AND CHECKED PRIOR FOR SAFETY, SIDE RAILS UP X 2, WILL ENDORSE TO AM SHIFT FOR YANETH
[2018-02-10] MEDS ORDERED: HYDROMORPHONE INJ 0.5 MG/0.5 ML SYRINGE ONE (06:21)
[2018-02-10] MEDS: HYDROMORPHONE 1 MG/1 ML DISP.SYRIN IV PRN (06:26)
--- NOTE | 2018-02-10 07:31 | NUR ---
M/S RN - Assessment Patient is awake in bed, A/O x 4, POD#1 Right Shoulder Arthroscopy by Dr. Huerta, right shoulder incision pain controlled by Dilaudid 0.5 mg IVP, dressing C/D/I without drainage, discharge, no surrounding erythema, or excess warmth, sling in place. Skin is intact except for right shoulder surgical incision, RUE is warm to touch, sensation is intact. Saline lock on the left wrist with no signs of infiltration. All needs anticipated and met. Possible discharge home today if stable.
[2018-02-10 08:00] VITALS: BP 94/63
[2018-02-10] MEDS ORDERED: FENTANYL PF 100MCG/2ML AMPUL IV PRN ×2 (08:30)
[2018-02-10] MEDS ORDERED: HYDROMORPHONE INJ 2 MG/ML DISP.SYRIN IV PRN ×2 (09:30)
[2018-02-10] MEDS ORDERED: HYDROMORPHONE 1 MG/1 ML DISP.SYRIN IV PRN ×2 (09:30)
--- NOTE | 2018-02-10 11:45 | NUR ---
M/S RN - Discharge Patient feeling better, discharged home in stable condition. Reviewed discharge instructions with pt and she verbalized full understanding of all teachings including continuing her home medication, remove right shoulder dressing tomorrow (02/11/18) and follow up appointment with Dr. Storm, Dr. Huerta, and Dr. Beck. All belongings with pt and she denies any missing items. VSS, right shoulder surgical site pain well controlled, no apparent distress seen. Heplock removed on the left wrist with catheter tip intact, no redness and no swelling noted at the site. Skin is intact except for right shoulder surgical incision, unable to take photo, per Md's order do not remove dressing until tomorrow. Discharge papers signed and copy was given per protocol. Accompanied to the lobby and transported by private car by family.
== END 2018-02-10 11:57 | disposition home or self-care (01) | DRG 512 ==
LOC: DS 05:02 → MEDSG1 05:09
PROVIDERS: ADMIT Specialist; ATTEND Legal Medicine
PROC: 0LQ14ZZ Repair Right Shoulder Tendon, Percutaneous Endoscopic Approach (ICD-10-PCS; principal; 2018-02-09 07:00)
DX: M75.101 Unspecified rotator cuff tear or rupture of right shoulder, not specified as traumatic (principal); G89.4 Chronic pain syndrome; M65.811 Other synovitis and tenosynovitis, right shoulder; M75.41 Impingement syndrome of right shoulder; M79.7 Fibromyalgia
CPT/HCPCS: 36415; 80048-TC; 85025-TC; 86850-TC; 86921-TC; 87081-TC; 88304-TC; 88305-TC; 88311-TC; A4217; A6253; C1713; J0171; J0690; J1040; J1100; J1170; J1885; J2250; J2405; J2704; J2710; J3010; J3490; J7060; Z7610

== ENCOUNTER 2018-04-06 09:30 | Outpatient (CLI) | payer BC ==
[~2018-04-06 09:30] MED LIST changes: +CYAN500T4 PO; -DIAZ5TAB4 PO; +DULO30CA2 PO; -ESCI20TA PO; -GABA600T2 PO; -OXYC10TA49 PO; +OXYC15TA2 PO; +PREG75CA PO; -TEMA30CA PO; +TRAZ-182 PO; +TURM1CAP2 PO
== END 2018-04-06 23:59 | disposition home or self-care (01) ==
LOC: MRI 09:30
PROVIDERS: ATTEND Physical Medicine & Rehabilitation Pain Medicine
DX: M51.36 Other intervertebral disc degeneration, lumbar region (principal)
CPT/HCPCS: 72148-TC

== ENCOUNTER 2018-06-01 11:17 | Outpatient (CLI) | payer BC ==
[2018-06-01 12:34] LABS: BASOPHILS % (AUTO) 0.6 % (0.0-2.0); EOSINOPHILS % (AUTO) 0.9 % (0.0-6.0); HEMATOCRIT 41 % (33-45); HEMOGLOBIN 13.3 g/dL (11.5-14.8); LYMPHOCYTES # (AUTO) 2.1 /CMM (0.8-4.8); MEAN CORPUSCULAR HEMOGLOBIN 30 PG (26.0-33.0); MEAN CORPUSCULAR HGB CONC 33 g/dl (31.0-36.0); MEAN CORPUSCULAR VOLUME 91 fL (82-100); MONOCYTES # (AUTO) 0.4 /CMM (0.1-1.30); NEUTROPHILS # (AUTO) 3.6 /CMM (1.8-8.9); NEUTROPHILS % (AUTO) 58.5 % (43.0-81.0); PLATELET COUNT (AUTO) 275 /CMM (150-450); RDW COEFFICIENT OF VARIATION 13.3 (11.5-15.0); RED BLOOD CELL COUNT(AUTO) 4.45 MIL/uL (4.0-5.2); WHITE BLOOD COUNT (AUTO) 6.2 K/uL (4.3-11.0)
[2018-06-01 12:47] LABS: ALBUMIN 3.5 g/dL (3.4-5.0); BILIRUBIN,DIRECT 0.1 mg/dL (0.0-0.2); BILIRUBIN,TOTAL 0.3 mg/dL (0.2-1.0); CREATININE 0.7 mg/dL (0.6-1.3); POTASSIUM 4.9 mmol/L (3.5-5.1); TOTAL PROTEIN, SERUM 6.7 g/dL (6.4-8.2)
[2018-06-01 13:19] LABS: THYROID STIMULATING HORMONE 0.744 uIU/mL (0.358-3.74)
== END 2018-06-01 23:59 | disposition home or self-care (01) ==
LOC: LAB 11:17
PROVIDERS: ATTEND Legal Medicine
DX: R41.82 Altered mental status, unspecified (principal)
CPT/HCPCS: 36415; 80053-TC; 80076-TC; 82140-TC; 84443-TC; 85025-TC

== ENCOUNTER 2018-06-02 10:26 | Outpatient (CLI) | payer BC | END 2018-06-02 23:59 | disposition home or self-care (01) | LOC: MRI 10:26 | PROVIDERS: ATTEND Legal Medicine | DX: I67.82 Cerebral ischemia (principal); J34.1 Cyst and mucocele of nose and nasal sinus | CPT/HCPCS: 70551-TC ==

== ENCOUNTER 2018-08-02 10:22 | Outpatient (CLI) | payer BC ==
[2018-08-02 11:22] LABS: T4 (THYROXINE) 8.5 ug/dL (4.7-13.3); THYROID STIMULATING HORMONE 0.67 uIU/mL (0.358-3.74)
== END 2018-08-02 23:59 | disposition home or self-care (01) ==
LOC: LAB 10:22
PROVIDERS: ATTEND Radiology Diagnostic Radiology
DX: F32.9 Major depressive disorder, single episode, unspecified (principal); M19.90 Unspecified osteoarthritis, unspecified site
CPT/HCPCS: 36415; 84436-TC; 84443-TC; 84450-TC; 84460-TC; 84480

== ENCOUNTER 2018-10-11 10:45 | Outpatient (CLI) | payer BC, OTHER ==
[2018-10-11 11:28] LABS: BASOPHILS # (AUTO) 0.1 /CMM (0.0-0.2); BASOPHILS % (AUTO) 1.1 % (0.0-2.0); EOSINOPHILS % (AUTO) 1.5 % (0.0-6.0); HEMATOCRIT 41 % (33-45); HEMOGLOBIN 13.5 g/dL (11.5-14.8); LYMPHOCYTES # (AUTO) 2.4 /CMM (0.8-4.8); LYMPHOCYTES % (AUTO) 34.5 % (20.0-44.0); MEAN CORPUSCULAR HGB CONC 33 g/dl (31.0-36.0); MEAN CORPUSCULAR VOLUME 89 fL (82-100); MONOCYTES # (AUTO) 0.4 /CMM (0.1-1.30); MONOCYTES % (AUTO) 6.2 % (2.0-12.0); NEUTROPHILS % (AUTO) 56.7 % (43.0-81.0); PLATELET COUNT (AUTO) 349 /CMM (150-450); RED BLOOD CELL COUNT(AUTO) 4.59 MIL/uL (4.0-5.2)
[2018-10-11 11:29] LABS: APPEARANCE,URINE CLEAR (CLEAR); BILIRUBIN,URINE NEGATIVE (NEGATIVE); BLOOD, URINE NEGATIVE Ery/uL (NEGATIVE); COLOR,URINE YELLOW (YELLOW); KETONES,URINE NEGATIVE (NEGATIVE); LEUKOCYTE ESTERASE ,URINE NEGATIVE (NEGATIVE); NITRITE, URINE NEGATIVE (NEGATIVE); PROTEIN,URINE NEGATIVE (NEGATIVE); UGLUCOSE NEGATIVE (NEGATIVE); UROBILINOGEN,URINE 0.2 EU/dL (0.2)
== END 2018-10-11 23:59 | disposition home or self-care (01) ==
LOC: LAB 10:45
PROVIDERS: ATTEND Legal Medicine
DX: N39.0 Urinary tract infection, site not specified (principal); R53.1 Weakness; D64.9 Anemia, unspecified
CPT/HCPCS: 36415; 81000-TC; 85025-TC

== ENCOUNTER 2019-03-23 16:16 | Outpatient (CLI) | END 2019-03-23 23:59 | disposition home or self-care (01) | LOC: RAD 16:16 | DX: Z01.818 Encounter for other preprocedural examination (principal); M47.814 Spondylosis without myelopathy or radiculopathy, thoracic region | CPT/HCPCS: 71045-TC ==

== ENCOUNTER → 2019-03-31 | Day surgery (SDC) | payer OTHER ==
[~2019-03-31] MED LIST changes: +ANESTHESIA TRAY IN PYXIS 1 EA TRAY MC ONE; +EPINEPHRINE (1:1000) 1 MG/ML AMPUL ONE; +FENTANYL PF 100MCG/2ML AMPUL ONE; +HYDROMORPHONE 1 MG/1 ML DISP.SYRIN ONE; +HYDROMORPHONE INJ 2 MG/ML DISP.SYRIN ONE; +LIDOCAINE HCL/PF 1% 30 ML SDV ONE; +MIDAZOLAM HCL 2 MG/2ML VIAL ONE; +ROCURONIUM BROMIDE 50 MG/5 ML ONE; +methylPREDNISolone ACETATE 80 MG/ML VIAL ONE; +oxyCODONE HCL SR 10MG TAB.SR.12H PO ONE
== END | disposition home or self-care (01) ==
LOC: DS 05:17
PROVIDERS: ATTEND Specialist
DX: M75.41 Impingement syndrome of right shoulder (principal); M94.221 Chondromalacia, right elbow; I10 Essential (primary) hypertension; Z98.84 Bariatric surgery status; Z88.8 Allergy status to other drugs, medicaments and biological substances; G89.29 Other chronic pain; F32.9 Major depressive disorder, single episode, unspecified; Z79.899 Other long term (current) drug therapy; Z98.890 Other specified postprocedural states
CPT/HCPCS: 29821; A4217; A4565; A6402; J0171; J0690; J1040; J1100; J1170 ×4; J1885; J2250; J2405; J2704; J2710; J3010; J3490 ×3; 88304-TC; 88311-TC

== ENCOUNTER 2019-04-26 10:04 | Outpatient (CLI) | payer BC ==
[~2019-04-26 10:04] MED LIST changes: -ANESTHESIA TRAY IN PYXIS 1 EA TRAY MC ONE; -EPINEPHRINE (1:1000) 1 MG/ML AMPUL ONE; -FENTANYL PF 100MCG/2ML AMPUL ONE; -HYDROMORPHONE 1 MG/1 ML DISP.SYRIN ONE; -HYDROMORPHONE INJ 2 MG/ML DISP.SYRIN ONE; -LIDOCAINE HCL/PF 1% 30 ML SDV ONE; -MIDAZOLAM HCL 2 MG/2ML VIAL ONE; -ROCURONIUM BROMIDE 50 MG/5 ML ONE; -methylPREDNISolone ACETATE 80 MG/ML VIAL ONE; -oxyCODONE HCL SR 10MG TAB.SR.12H PO ONE
[2019-04-26 11:01] LABS: BASOPHILS # (AUTO) 0.1 /CMM (0.0-0.2); BASOPHILS % (AUTO) 1.3 % (0.0-2.0); EOSINOPHILS % (AUTO) 1.4 % (0.0-6.0); HEMATOCRIT 42 % (33-45); HEMOGLOBIN 13.7 g/dL (11.5-14.8); LYMPHOCYTES # (AUTO) 1.5 /CMM (0.8-4.8); MEAN CORPUSCULAR HGB CONC 33 g/dl (31.0-36.0); MEAN CORPUSCULAR VOLUME 92 fL (82-100); MONOCYTES # (AUTO) 0.3 /CMM (0.1-1.30); MONOCYTES % (AUTO) 7.3 % (2.0-12.0); NEUTROPHILS # (AUTO) 2.7 /CMM (1.8-8.9); PLATELET COUNT (AUTO) 329 /CMM (150-450); RED BLOOD CELL COUNT(AUTO) 4.57 MIL/uL (4.0-5.2); WHITE BLOOD COUNT (AUTO) 4.6 K/uL (4.3-11.0)
[2019-04-26 11:20] LABS: ALBUMIN 3.9 g/dL (3.4-5.0); BILIRUBIN,TOTAL 0.4 mg/dL (0.2-1.0); CALCIUM, SERUM 9.2 mg/dL (8.5-10.1); CREATININE 0.7 mg/dL (0.6-1.3); POTASSIUM 4.5 mmol/L (3.5-5.1)
[2019-04-26 11:36] LABS: APPEARANCE,URINE CLEAR (CLEAR); BILIRUBIN,URINE NEGATIVE (NEGATIVE); BLOOD, URINE NEGATIVE Ery/uL (NEGATIVE); COLOR,URINE YELLOW (YELLOW); KETONES,URINE TRACE (NEGATIVE); LEUKOCYTE ESTERASE ,URINE NEGATIVE (NEGATIVE); NITRITE, URINE NEGATIVE (NEGATIVE); PH,URINE 7.5 (5.0-8.0); PROTEIN,URINE NEGATIVE (NEGATIVE); UGLUCOSE NEGATIVE (NEGATIVE)
[2019-04-26 13:17] LABS: BACTERIA,URINE Rare /HPF (None Seen); RBC,URINE NONE SEEN /HPF (0-2); SQUAMOUS EPITHELIAL CELL,UR Few /HPF (None Seen); WBC,URINE 0-2 /HPF (0-3); YEAST,URINE Few /HPF (None Seen)
== END 2019-04-26 23:59 | disposition home or self-care (01) ==
LOC: LAB 10:04
PROVIDERS: ATTEND Legal Medicine
DX: I10 Essential (primary) hypertension (principal); N39.0 Urinary tract infection, site not specified; D64.9 Anemia, unspecified; R53.1 Weakness; D68.59 Other primary thrombophilia
CPT/HCPCS: 36415; 80053-TC; 81000-TC; 85025-TC; 85730-TC

== ENCOUNTER 2019-05-03 05:29 | Inpatient (IN) | payer BC ==
[~2019-05-03] VITALS: Ht 162.6 cm; Wt 73.9 kg
--- NOTE | 2019-05-03 06:00 | NUR ---
ALL INITIAL NOTES RECEIVED PT A DIRECT ADMIT FOR DAY SURGERY. SHE'S AWAKE AND ALERT AMBULATORY. SHE CAME HER FOR FOLLOW UP SURGERY THAT WILL BE DOING BY DR BOYLE. PT DENIES ANY PAIN OR DISCOMFORT. SIGNED CONSENT BY THE PT ITSELF. HEPLOCK INSERTED IN HER RIGHT FOREARM . KEPT HER WARM AND COMFORTABLE AT ALL TIMES. PLACE BERYL LIGHT AT REACH. WILL CONTINUE MONITORING.
[2019-05-03 07:00] VITALS: BP 105/62
--- NOTE | 2019-05-03 07:15 | NUR ---
MS RN INITIAL NOTES Report received at bedside. Patient received in bed, awake, comfortable. Alert and oriented x4, verbally responsive. Significant other at bedside. No signs and symptoms of distress. Safety measures in place. Will continue to monitor and assess patient.
--- NOTE | 2019-05-03 07:30 | NUR ---
MS SUPERVISOR [employer] CLOSING NOTES PT RESTING COMFORTABLY IN BED WITHOUT ANY DISCOMFORT NOTED. ENDORSE TO AM NURSE FOR CONTINUITY OF CARE. WAITING FOR OR TECH TO PICK HER UP.
--- NOTE | 2019-05-03 07:50 | NUR ---
MS RN NOTES Patient transported to OR via gurney with OR staff in stable condition
[2019-05-03 08:00] VITALS: BP 104/63
[2019-05-03] MEDS ORDERED: DULO60CA45 PO (08:16)
[2019-05-03] MEDS ORDERED: METH750T3 PO (08:16)
[2019-05-03] MEDS ORDERED: PREG150C PO (08:16)
[2019-05-03] MEDS ORDERED: PREG100C PO (08:16)
[2019-05-03] MEDS ORDERED: ROCURONIUM BROMIDE 50 MG/5 ML ONE (08:26)
[2019-05-03] MEDS ORDERED: ALBUTEROL 17GM INHALER ONE (09:33)
[2019-05-03] MEDS ORDERED: HYDROMORPHONE 1 MG/1 ML DISP.SYRIN ONE ×2 (10:27→10:47)
[2019-05-03] MEDS ORDERED: ALBUTEROL FS 2.5 MG/3 ML VIAL.NEB ONE (10:59)
[2019-05-03] MEDS ORDERED: HYDROCODONE/APAP 10/325MG 1 EA TABLET ONE (11:07)
--- NOTE | 2019-05-03 11:25 | NUR ---
MS RN POST-OP NOTES Patient returned from OR @1120 via hospital bed. Pt is awake, alert and complaining of pain. Report received from OR nurse: Mccormick to be given in an hour with SpO2 above 90%. Right foot covered with dry dressing, clean and intact. Will continue to monitor and assess patient. 111/55 91 20 98.2 86% RA - 100% @5lpm via nasal cannula
[2019-05-03] MEDS ORDERED: oxyCODONE IR immediate release 5 MG PO PRN (12:30)
[2019-05-03] MEDS ORDERED: ONDANSETRON HCL/PF 4 MG/2 ML VIAL IV PRN (12:30)
[2019-05-03] MEDS ORDERED: HYDROMORPHONE INJ 0.5 MG/0.5 ML SYRINGE IV PRN ×3 (12:30)
[2019-05-03] MEDS ORDERED: METOCLOPRAMIDE HCL 10 MG/2 ML VIAL IV ONE (12:30)
[2019-05-03] MEDS ORDERED: ALBUTEROL FS 2.5 MG/0.5 ML VIAL.NEB NEB PRN (12:30)
--- NOTE | 2019-05-03 13:26 | NUR ---
MS RN NOTES SpO2 @ 96-97% in room air
[2019-05-03] MEDS ORDERED: HYDROMORPHONE 1 MG/1 ML DISP.SYRIN IV ONE (13:30)
[2019-05-03] MEDS ORDERED: HYDROMORPHONE INJ 0.5 MG/0.5 ML SYRINGE IV ONE (13:30)
--- NOTE | 2019-05-03 15:22 | NUR ---
MS WRAPPING CLERK NOTES Patient stated that she is ready to leave. PT eval done and patient is cleared for discharge by PT. Patient comfortable with mobilization with assisted device. Discharge papers provided, reviewed and signed by patient. Discharge instructions provided and reinforced importance of follow up appointment in 7-10 days - verbalized understanding. Provided address and phone number for Dr. Huerta's office. Belongings form reviewed and signed by patient. IV access removed with cath tip intact and no bleeding noted. Vitals within normal limits. No SOB/labored breathing noted. Not in any type of distress. Medically stable with complaints of tolerable pain. Encouraged and educated to practice deep breathing. Significant other at bedside. Durable Medical equipment provided to be taken home as ordered. R foot dressing dry, clean and intact with no stain noted. ID band removed. All questions and concerns addressed. Will wheel patient down to lobby after bow maker machine tender adjust walker. 114/57 18 110 98.2 96% RA
== END 2019-05-03 15:30 | disposition home or self-care (01) | DRG 502 ==
LOC: DS 05:29 → MED 05:31
PROVIDERS: ADMIT Specialist; ATTEND Specialist
PROC: 0J8Q0ZZ Division of Right Foot Subcutaneous Tissue and Fascia, Open Approach (ICD-10-PCS; principal; 2019-05-03)
PROC: 0QBL0ZZ Excision of Right Tarsal, Open Approach (ICD-10-PCS; principal; 2019-05-03)
DX: M72.2 Plantar fascial fibromatosis (principal); G89.4 Chronic pain syndrome; M77.31 Calcaneal spur, right foot; M92.61 Juvenile osteochondrosis of tarsus, right ankle; M77.30 Calcaneal spur, unspecified foot; M79.7 Fibromyalgia; Z98.890 Other specified postprocedural states
CPT/HCPCS: 97116-TC; 97530-TC; A4217; A6402; G0378; J0690; J1100; J1170; J1885; J2405; J2704; J2710; J3490

== ENCOUNTER → 2019-07-25 | Outpatient (CLI) | payer BC ==
[~2019-07-25] MED LIST changes: -CYAN500T4 PO; +CYAN500T65 PO; -DULO30CA2 PO; +DULO60CA45 PO; -ESTR1PAT27 TD; -METH500T PO; +METH750T3 PO; +PREG100C PO; +PREG150C PO; -PREG75CA PO
== END | disposition home or self-care (01) ==
LOC: MSC 16:00
PROVIDERS: ATTEND Anesthesiology
DX: G89.4 Chronic pain syndrome (principal); M75.91 Shoulder lesion, unspecified, right shoulder; M62.830 Muscle spasm of back; M79.7 Fibromyalgia; M25.511 Pain in right shoulder; Z79.891 Long term (current) use of opiate analgesic; Z79.82 Long term (current) use of aspirin; Z79.899 Other long term (current) drug therapy

== ENCOUNTER → 2019-08-11 | Day surgery (SDC) | payer BC ==
[~2019-08-11] MED LIST changes: +ACETAMINOPHEN 325 MG TABLET ONE; +ANESTHESIA TRAY IN PYXIS 1 EA TRAY MC ONE; +BUPIVACAINE 0.25% 75 MG/30 ML VIAL ONE; +HYDROMORPHONE INJ 2 MG/ML DISP.SYRIN ONE; +IOHEXOL 240MG/ML 50 ML IV ONE; +LIDOCAINE HCL/PF 1% 30 ML SDV ONE; +methylPREDNISolone ACETATE 80 MG/ML VIAL ONE; +oxyCODONE IR immediate release 5 MG ONE
== END | disposition home or self-care (01) ==
LOC: DS 05:58
PROVIDERS: ATTEND Anesthesiology
DX: M25.551 Pain in right hip (principal); G89.29 Other chronic pain; K21.9 Gastro-esophageal reflux disease without esophagitis; F32.9 Major depressive disorder, single episode, unspecified; Z79.899 Other long term (current) drug therapy
CPT/HCPCS: 23350; 73020; 77002; A6402; J1040 ×2; J1170; J2704; J3490 ×3; Q9966

== ENCOUNTER 2019-12-29 07:55 | Outpatient (CLI) | payer BC ==
[~2019-12-29 07:55] MED LIST changes: -ACETAMINOPHEN 325 MG TABLET ONE; -ANESTHESIA TRAY IN PYXIS 1 EA TRAY MC ONE; -BUPIVACAINE 0.25% 75 MG/30 ML VIAL ONE; -HYDROMORPHONE INJ 2 MG/ML DISP.SYRIN ONE; -IOHEXOL 240MG/ML 50 ML IV ONE; -LIDOCAINE HCL/PF 1% 30 ML SDV ONE; -methylPREDNISolone ACETATE 80 MG/ML VIAL ONE; -oxyCODONE IR immediate release 5 MG ONE
[2019-12-29 10:44] LABS: APPEARANCE,URINE CLEAR (CLEAR); BILIRUBIN,URINE NEGATIVE (NEGATIVE); BLOOD, URINE NEGATIVE Ery/uL (NEGATIVE); COLOR,URINE YELLOW (YELLOW); KETONES,URINE NEGATIVE (NEGATIVE); LEUKOCYTE ESTERASE ,URINE NEGATIVE (NEGATIVE); NITRITE, URINE NEGATIVE (NEGATIVE); PROTEIN,URINE NEGATIVE (NEGATIVE); UGLUCOSE NEGATIVE (NEGATIVE); UROBILINOGEN,URINE 0.2 EU/dL (0.2)
[2019-12-29 10:54] LABS: BASOPHILS % (AUTO) 0.8 % (0.0-2.0); EOSINOPHILS % (AUTO) 2.2 % (0.0-6.0); HEMATOCRIT 43 % (33-45); HEMOGLOBIN 13.9 g/dL (11.5-14.8); LYMPHOCYTES # (AUTO) 1.5 /CMM (0.8-4.8); LYMPHOCYTES % (AUTO) 34.6 % (20.0-44.0); MEAN CORPUSCULAR HGB CONC 32 g/dl (31.0-36.0); MEAN CORPUSCULAR VOLUME 91 fL (82-100); MONOCYTES # (AUTO) 0.2 /CMM (0.1-1.30); MONOCYTES % (AUTO) 4.6 % (2.0-12.0); NEUTROPHILS # (AUTO) 2.4 /CMM (1.8-8.9); NEUTROPHILS % (AUTO) 57.8 % (43.0-81.0); PLATELET COUNT (AUTO) 282 /CMM (150-450); RED BLOOD CELL COUNT(AUTO) 4.76 MIL/uL (4.0-5.2); WHITE BLOOD COUNT (AUTO) 4.2 K/uL (4.3-11.0)
[2019-12-29 11:03] LABS: ALBUMIN 3.6 g/dL (3.4-5.0); BILIRUBIN,TOTAL 0.4 mg/dL (0.2-1.0); CALCIUM, SERUM 9.1 mg/dL (8.5-10.1); CREATININE 0.7 mg/dL (0.6-1.3); POTASSIUM 4.7 mmol/L (3.5-5.1); TOTAL PROTEIN, SERUM 6.8 g/dL (6.4-8.2)
[2019-12-29 11:25] LABS: C-REACTIVE PROTEIN 0.3 mg/dL (0.0-0.9); THYROID STIMULATING HORMONE 1.28 uIU/mL (0.358-3.74); URIC ACID 4.2 mg/dL (2.6-7.2)
[2019-12-30 07:08] LABS: FOLIC ACID 14.1 ng/mL (>3.0)
== END 2019-12-29 23:59 | disposition home or self-care (01) ==
LOC: LAB 07:55
PROVIDERS: ATTEND Legal Medicine
DX: Z00.00 Encounter for general adult medical examination without abnormal findings (principal); E03.9 Hypothyroidism, unspecified; D64.9 Anemia, unspecified; E55.9 Vitamin D deficiency, unspecified
CPT/HCPCS: 36415; 80053-TC; 80061-TC; 81000-TC; 82306; 82728-TC; 83540-TC; 84439-TC; 84443-TC; 84550-TC; 85025-TC; 85652-TC; 86140-TC